=== PATIENT | female | born 1980 | race Asian ===

== ENCOUNTER 2019-09-02 12:30 | Inpatient (IN) | payer OTHER ==
[~2019-09-02] VITALS: Ht 163 cm; Wt 79.4 kg
[2019-09-02] MEDS ORDERED: OXYTOCIN/0.9 % SODIUM CHLORIDE 1,000 ML IV SCH (12:58)
[2019-09-02] MEDS ORDERED: NALBUPHINE HCL 10 MG/ML AMP IVP PRN (13:00)
[2019-09-02 13:24] LABS: BASOPHILS % (AUTO) 0.3 % (0.0-2.0); EOSINOPHILS % (AUTO) 0.2 % (0.0-4.0); HEMATOCRIT 36.4 % (36-48); HEMOGLOBIN 12.6 g/dL (12.0-16.0); LYMPHOCYTES # (AUTO) 1.4 K/uL (1.0-5.5); MEAN CORPUSCULAR HEMOGLOBIN 32 pg (27-31); MEAN CORPUSCULAR HGB CONC 35 % (32-36); MEAN CORPUSCULAR VOLUME 91 fL (79.0-98.0); MONOCYTES # (AUTO) 0.6 K/uL (0.0-1.0); MONOCYTES % (AUTO) 7.1 % (1.7-9.3); NEUTROPHILS # (AUTO) 6.7 K/uL (1.8-7.7); NEUTROPHILS % (AUTO) 76.4 % (40.0-70.0); PLATELET COUNT (AUTO) 167 K/uL (130-430); RED CELL DISTRIBUTION WIDTH 12.7 % (9.0-15.0); WHITE BLOOD COUNT (AUTO) 8.8 K/uL (4.8-10.8)
[2019-09-02] MEDS ORDERED: LR 1,000 ML IV ONE (13:24)
[2019-09-02] MEDS ORDERED: CEFAZOLIN 2 GM IVPB PREMIX 50 ML IV ONE ×2 (13:30→13:46)
[2019-09-02] MEDS ORDERED: METOCLOPRAMIDE HCL 10 MG/2 ML VIAL IVP ONE (13:30)
[2019-09-02] MEDS ORDERED: ePHEDrine sulfate 50 MG/ML VIAL IVP ONE (13:40)
[2019-09-02] MEDS ORDERED: BUPIVACAINE /DEX PF 0.75% SPINAL 2 ML AMP INJ ONE (13:40)
[2019-09-02] MEDS ORDERED: OXYTOCIN 10 UNIT/ML VIAL IV ONE (13:40)
[2019-09-02] MEDS ORDERED: MORPHINE SULFATE 10MG/10ML PF AMP EP ONE (13:40)
[2019-09-02] MEDS ORDERED: LR 1,000 ML IV.SOLN IV ONE (13:40)
[2019-09-02] MEDS ORDERED: ONDANSETRON HCL 4 MG/2 ML VIAL IVP ONE (13:40)
[2019-09-02 13:57] LABS: BILIRUBIN,URINE NEGATIVE (NEGATIVE); BLOOD, URINE 3+ (NEGATIVE); COLOR,URINE YELLOW (YELLOW); GLUCOSE,URINE NEGATIVE (NEGATIVE); KETONES,URINE NEGATIVE (NEGATIVE); LEUKOCYTE ESTERASE ,URINE TRACE (NEGATIVE); NITRITE, URINE NEGATIVE (NEGATIVE); PROTEIN URINE NEGATIVE (NEGATIVE); UROBILINOGEN,URINE 0.2 (0.2-1.0)
[2019-09-02] MEDS ORDERED: NALOXONE HCL 1 MG in NACL 0.9% 1,000 ML IV PRN ×4 (14:20)
[2019-09-02] MEDS ORDERED: LR 1,000 ML IV SCH ×2 (14:20→16:49)
[2019-09-02 14:26] LABS: BACTERIA,URINE MANY /HPF (None Seen); CLARITY/URINE SLIGHTLY HAZY (CLEAR)
[2019-09-02] MEDS ORDERED: HYDROmorphone 2 MG/ML VIAL IVP PRN ×2 (14:30)
[2019-09-02] MEDS ORDERED: DIPHENHYDRAMINE HCL 50 MG CAPSULE PO PRN (14:30)
[2019-09-02] MEDS ORDERED: DIPHENHYDRAMINE INJ 50 MG/ML VIAL IVP PRN (14:30)
[2019-09-02] MEDS ORDERED: MEPERIDINE HCL/PF 25 MG/ML DISP.SYRIN IVP PRN ×2 (14:30)
[2019-09-02] MEDS ORDERED: HYDROmorphone 1 MG INJ. 1 MG/ML AMPUL IVP PRN (14:30)
[2019-09-02] MEDS ORDERED: NALOXONE HCL 0.4 MG/ML AMP (NARCAN) IVP PRN ×3 (14:30)
[2019-09-02] MEDS ORDERED: ONDANSETRON HCL 4 MG/2 ML VIAL IVP PRN (14:30)
[2019-09-02] MEDS ORDERED: OXYTOCIN/0.9 % SODIUM CHLORIDE 1,000 ML IV ONE ×2 (15:02→16:49)
[2019-09-02 16:47] VITALS: BP_SYST 131
[2019-09-02] MEDS ORDERED: MEASLES,MUMPS&RUBELLA VACC/PF 12500 UNIT/0.5 ML VIAL SUBQ PRN (17:00)
[2019-09-02] MEDS ORDERED: DIPH-TET-PERTUS Vaccine 0.5 ML VIAL (ADACEL) I.M. PRN (17:00)
[2019-09-02] MEDS ORDERED: BISACODYL 10 MG/SUPPOSITORY RC PRN (17:00)
[2019-09-02] MEDS ORDERED: RHO(D) IMMUNE GLOBULIN/MALTOSE 1500 UNITS/1.3 ML (WINHRO) IM PRN (17:00)
[2019-09-02] MEDS ORDERED: LANOLIN 7 GM OINT. TP PRN (17:00)
[2019-09-02] MEDS ORDERED: ANUSOL 1 EA SUPP.RECT (PREPARATION H) RC PRN (17:00)
[2019-09-02] MEDS ORDERED: SENNOSIDES/DOCUSATE SODIUM 1 TAB TABLET(SENOKOT-S) PO PRN (17:00)
[2019-09-02] MEDS ORDERED: HYDROcodone/ACETAMIN 5-325 MG TAB (NORCO/ VICODIN) PO PRN (17:30)
[2019-09-02] MEDS ORDERED: OXYCODONE/ACETAMINOPHEN 5-325 TABLET PO PRN ×2 (17:30)
[2019-09-02] MEDS ORDERED: TEMAZEPAM 15 MG CAPSULE PO PRN (21:00)
[2019-09-03] MEDS: CEFAZOLIN 1 GM IVPB PREMIX 50 ML IV SCH ×2 (06:00→12:34)
[2019-09-03] MEDS: KETOROLAC TROMETHAMINE 30 MG VIAL IVP SCH ×2 (06:00→12:33)
[2019-09-03 06:22] LABS: BASOPHILS % (AUTO) 0.2 % (0.0-2.0); EOSINOPHILS % (AUTO) 0.1 % (0.0-4.0); HEMATOCRIT 30.5 % (36-48); HEMOGLOBIN 10.7 g/dL (12.0-16.0); LYMPHOCYTES # (AUTO) 0.9 K/uL (1.0-5.5); LYMPHOCYTES % (AUTO) 8.9 % (20.5-51.5); MEAN CORPUSCULAR HEMOGLOBIN 32 pg (27-31); MEAN CORPUSCULAR HGB CONC 35 % (32-36); MEAN CORPUSCULAR VOLUME 92 fL (79.0-98.0); MONOCYTES # (AUTO) 0.6 K/uL (0.0-1.0); MONOCYTES % (AUTO) 6.1 % (1.7-9.3); NEUTROPHILS # (AUTO) 8.4 K/uL (1.8-7.7); NEUTROPHILS % (AUTO) 84.7 % (40.0-70.0); PLATELET COUNT (AUTO) 119 K/uL (130-430); RED BLOOD CELL COUNT(AUTO) 3.32 MIL/uL (4.2-6.2); RED CELL DISTRIBUTION WIDTH 12.7 % (9.0-15.0); WHITE BLOOD COUNT (AUTO) 9.9 K/uL (4.8-10.8)
[2019-09-03] MEDS ORDERED: POLYMYXIN 500,000/BACIT.10,000 UNITS in NS IRR 1 L IR ONE (15:50)
[2019-09-03] MEDS: SIMETHICONE 80 MG TAB.CHEW PO PRN (17:52)
[2019-09-03] MEDS: IBUPROFEN 600 MG TABLET PO SCH ×2 (17:53→23:43)
[2019-09-03] MEDS: DOCUSATE SODIUM 100 MG CAPSULE PO PRN (23:44)
[2019-09-04] MEDS: IBUPROFEN 600 MG TABLET PO SCH ×3 (06:12→17:40)
[2019-09-04] MEDS: DOCUSATE SODIUM 100 MG CAPSULE PO PRN (12:21)
[2019-09-04] MEDS: SIMETHICONE 80 MG TAB.CHEW PO PRN (12:21)
[2019-09-05] MEDS: IBUPROFEN 600 MG TABLET PO SCH ×3 (00:17→12:27)
== END 2019-09-05 14:20 | disposition home or self-care (01) | DRG 788 ==
LOC: SPU 12:30
PROVIDERS: ADMIT Obstetrics & Gynecology; ATTEND Obstetrics & Gynecology
PROC: 10D00Z1 Extraction of Products of Conception, Low, Open Approach (ICD-10-PCS; principal; 2019-09-03)
DX: O76 Abnormality in fetal heart rate and rhythm complicating labor and delivery (principal); O99.284 Endocrine, nutritional and metabolic diseases complicating childbirth; E03.9 Hypothyroidism, unspecified; Z37.0 Single live birth; Z3A.39 39 weeks gestation of pregnancy
CPT/HCPCS: 36415; 81000-TC; 85025; 86592; 86886; 86900; 86901; 87086; 94760; J0690; J1200; J1885; J2274; J2405; J2590; J3490; J7120